=== PATIENT | male | born 1940 | race Two or more races ===

== ENCOUNTER 2017-04-21 13:06 | Inpatient (IN) | payer MEDICARE, OTHER ==
[~2017-04-21] VITALS: Ht 170.2 cm; Wt 63.5 kg
[2017-04-21 13:23] VITALS: BP 151/89
[2017-04-21 13:54] LABS: BASOPHILS % (AUTO) 0.5 % (0.0-2.0); EOSINOPHILS % (AUTO) 1.1 % (0.0-3.0); LYMPHOCYTES % (AUTO) 15.6 % (20.0-45.0); MEAN CORPUSCULAR HGB CONC 31.6 G/DL (32.0-36.0); MEAN CORPUSCULAR VOLUME 98 FL (80-99); MEAN PLATELET VOLUME 7.6 FL (6.5-10.1); MONOCYTES % (AUTO) 15.1 % (1.0-10.0); NEUTROPHILS % (AUTO) 67.6 % (45.0-75.0); PLATELET COUNT 176 K/UL (150-450); RED CELL DISTRIBUTION WIDTH 14.6 % (11.6-14.8); WHITE BLOOD COUNT 4.7 K/UL (4.8-10.8)
[2017-04-21 14:08] LABS: INR 1.1 (0.9-1.1); PROTHROMBIN TIME 11.2 SEC (9.30-11.50)
[2017-04-21 14:12] LABS: ALANINE AMINOTRANSFERASE 23 U/L (3-41); ALBUMIN/GLOBULIN RATIO 1.4 (1.0-2.7); ANION GAP 15 (5-15); ASPARTATE AMINO TRANSFERASE 32 U/L (5-40); CALCIUM 9.2 mg/dL (8.6-10.2); CARBON DIOXIDE 20 mEQ/L (20-30); CHLORIDE 103 mEQ/L (98-107); CHOLESTEROL 116 mg/dL (< 200); CHOLESTEROL/HDL RATIO 3.7 (3.3-4.4); HEMOLYSIS 1; LDL CHOLESTEROL (CALC.) 62 mg/dL (60-99); POTASSIUM 4.1 mEQ/L (3.4-4.9); SODIUM 138 mEQ/L (135-145); TOTAL PROTEIN 6.6 g/dL (6.6-8.7); TROPONIN I < 0.30 ng/mL (<=0.30)
--- NOTE | 2017-04-21 14:13 | Emergency Room Report ---
History of Present Illness General Chief Complaint: General Complaint Source: Patient Present Illness HPI Patient states he feels like he has an infection in his neck and face. He states that the sensation that he is having it in his neck and throat and all over the right side of his face and scalp. He states he has difficulty swallowing and has been unable to eat because he doesn't feel like he can get food down. He denies fever or chills. Denies nausea or vomiting. He denies chest pain or shortness of breath. He has no other complaints. Allergies: Coded Allergies: No Known Allergies (Unverified , 04/21/17) Patient History Past Medical History: see triage record, HTN, other - prostate ca Social History: Denies: alcohol use, drug use, smoking Reviewed Nursing Documentation: PMH: Agreed, PSxH: Agreed Nursing Documentation-PMH Past Medical History: No History, Except For Hx Hypertension: Yes Hx Asthma: No Hx Diabetes: No Hx Cancer: Yes - Prostate Review of Systems All Other Systems: negative except mentioned in HPI Physical Exam Vital Signs Date Time Temp Pulse Resp B/P Pulse Ox O2 Delivery O2 Flow Rate FiO2 04/21/17 13:11 97.7 69 14 151/89 100 Room Air Sp02 EP Interpretation: reviewed, normal General Appearance: no apparent distress, alert, GCS 15, non-toxic Head: normocephalic, atraumatic Eyes: bilateral eye PERRL, bilateral eye normal inspection ENT: hearing grossly normal, normal pharynx, no angioedema, normal voice Neck: full range of motion, supple/symm/no masses Respiratory: chest non-tender, lungs clear, normal breath sounds, speaking full sentences Cardiovascular #1: regular rate, rhythm, no edema Gastrointestinal: normal bowel sounds, non tender, soft, non-distended, no guarding, no rebound Rectal: deferred Musculoskeletal: back normal, gait/station normal, normal range of motion, non- tender Neurologic: alert, oriented x3, responsive, motor strength/tone normal, sensory intact, speech normal Psychiatric: judgement/insight normal, memory normal, mood/affect normal, no suicidal/homicidal ideation Skin: normal color, no rash, warm/dry, well hydrated Lymphatic: no adenopathy Medical Decision Making Diagnostic Impression: Primary Impression: Dysphagia ER Course This patient presents with dysphagia. He is difficult to fully determine what this patient is complaining of. However, given the head symptoms of the symptoms, I felt I should obtain a CT of the head which was unremarkable, so MRI of his brain was ordered and pending at the time of this dictation. I will go ahead and admit this patient for possible further evaluation by neurology and gastroenterology. The patient does have a lab findings consistent with dehydration. He was given IV fluids here in the emergency department. If there are any significant results are findings on the MRI of the brain, an addendum will be added by Dr. Causey. Labs Test 04/21/17 13:40 White Blood Count 4.7 K/UL (4.8-10.8) Red Blood Count 3.40 M/UL (4.70-6.10) Hemoglobin 10.6 G/DL (14.2-18.0) Hematocrit 33.4 % (42.0-52.0) Mean Corpuscular Volume 98 FL (80-99) Mean Corpuscular Hemoglobin 31.0 PG (27.0-31.0) Mean Corpuscular Hemoglobin Concent 31.6 G/DL (32.0-36.0) Red Cell Distribution Width 14.6 % (11.6-14.8) Platelet Count 176 K/UL (150-450) Mean Platelet Volume 7.6 FL (6.5-10.1) Neutrophils (%) (Auto) 67.6 % (45.0-75.0) Lymphocytes (%) (Auto) 15.6 % (20.0-45.0) Monocytes (%) (Auto) 15.1 % (1.0-10.0) Eosinophils (%) (Auto) 1.1 % (0.0-3.0) Basophils (%) (Auto) 0.5 % (0.0-2.0) Prothrombin Time 11.2 SEC (9.30-11.50) Prothromb Time International Ratio 1.1 (0.9-1.1) Activated Partial Thromboplast Time 25 SEC (23-33) Sodium Level 138 mEQ/L (135-145) Potassium Level 4.1 mEQ/L (3.4-4.9) Chloride Level 103 mEQ/L (98-107) Carbon Dioxide Level 20 mEQ/L (20-30) Anion Gap 15 (5-15) Blood Urea Nitrogen 40 mg/dL (7-23) Creatinine 2.0 mg/dL (0.7-1.2) Estimat Glomerular Filtration Rate mL/min (>60) Glucose Level 102 mg/dL (74-106) Calcium Level 9.2 mg/dL (8.6-10.2) Total Bilirubin 0.6 mg/dL (0.0-1.2) Aspartate Amino Transf (AST/SGOT) 32 U/L (5-40) Alanine Aminotransferase (ALT/SGPT) 23 U/L (3-41) Alkaline Phosphatase 45 U/L (40-129) Troponin I < 0.30 ng/mL (<=0.30) Total Protein 6.6 g/dL (6.6-8.7) Albumin 3.9 g/dL (3.5-5.2) Globulin 2.7 g/dL Albumin/Globulin Ratio 1.4 (1.0-2.7) Triglycerides Level 115 mg/dL (< 150) Cholesterol Level 116 mg/dL (< 200) LDL Cholesterol 62 mg/dL (60-99) HDL Cholesterol 31 mg/dL (> 60) Cholesterol/HDL Ratio 3.7 (3.3-4.4) EKG Diagnostic Results Rate: normal ST Segments: no acute changes Rhythm Strip Diag. Results EP Interpretation: yes Rate: 60's Rhythm: NSR, no PVC's, no ectopy CT/MRI/US Diagnostic Results CT/MRI/US Diagnostic Results : Imaging Test Ordered: CT head Impression No acute findings. Specifically no intracranial bleed, mass effect or edema. See official report. Last Vital Signs Date Time Temp Pulse Resp B/P Pulse Ox O2 Delivery O2 Flow Rate FiO2 04/21/17 13:23 14 151/89 100 Room Air 04/21/17 13:11 97.7 69 Disposition: ADMITTED INPATIENT Condition: Serious Referrals: NOT CHOSEN IPA/,REFERRING (PCP) KAYLIE CABRERA D.O. Apr 21, 2017 14:13
[2017-04-21 15:19] VITALS: BP 158/90
[2017-04-21] MEDS ORDERED: BENAZEPRIL HCL40 MG ORAL (15:20)
[2017-04-21] MEDS ORDERED: MYRBETRIQ25 MG PO (15:20)
[2017-04-21] MEDS ORDERED: VITAMIN D22000 UNIT PO (15:20)
[2017-04-21] MEDS ORDERED: FENOFIBRATE134 M1 ORAL (15:22)
[2017-04-21] MEDS ORDERED: ALLOPURINOL300 M1 ORAL (15:22)
[2017-04-21] MEDS ORDERED: PRAVACHOL40 MG ORAL (15:22)
[2017-04-21] MEDS ORDERED: DOCUSATE SODIU100 MG ORAL (15:22)
--- NOTE | 2017-04-21 16:43 | Diagnostic Imaging Report ---
Indication: 76-year-old male emergency room patient with right-sided facial weakness Technique: sagittal T1 fast spin echo, axial T1 FLAIR, axial T2 FLAIR, axial T2 FS PROPELLER, axial T2* GRE, axial diffusion weighted images. ADC and exponential ADC maps generated Comparison: None Findings: No abnormal areas of restricted diffusion to suggest acute infarction. No acute hemorrhage or edema. No mass effect nor midline shift. There is age-related enlargement of ventricles and extra axial CSF spaces.. The sinuses are unremarkable. There is evidence of prior bilateral cataract surgery. The vascular flow voids are preserved. Impression: Age-related volume loss Negative for acute intracranial bleed, mass effect, or infarct.
--- NOTE | 2017-04-21 16:44 | Diagnostic Imaging Report ---
Indication: Right-sided facial numbness Technique: spiral acquisitions obtained through the brain. Angled axial and coronal 5 x 5 mm slices were reconstructed. No IV contrast utilized. Radiation dose was minimized using automated exposure control Total dose length product 1368 mGycm. CTDIvol(s) 70 mGy Comparison: none FINDINGS: No acute hemorrhage or edema. No mass effect or midline shift. There is age-related enlargement of the ventricles and extra axial CSF spaces. There is periventricular deep white matter ischemic change. Normal flores-white differentiation. Visualized orbits are unremarkable. Visualized sinuses are unremarkable. Intact calvarium. IMPRESSION: Chronic and age-related changes. Negative for acute intracranial bleed or mass effect The CT scanner at [facility] is accredited by the [employer] and the scans are performed using protocols designed to limit radiation exposure to as low as reasonably achievable to attain images of sufficient resolution adequate for diagnostic evaluation
[2017-04-21 17:00] VITALS: BP 144/72
--- NOTE | 2017-04-21 17:03 | Diagnostic Imaging Report ---
Indication: DYSPHAGIA Technique: No IV contrast utilized, reason not stated. Spiral acquisitions obtained through the neck Multiplanar reconstructions were generated. Total dose length product 497 mGycm. CTDIvol(s) 17 mGy. Radiation dose was minimized using automated exposure control Comparison: None Findings: The esophagus is mildly gas-filled but normal in caliber. No definite abnormality of the nasopharynx, oropharynx, hypopharynx, or larynx demonstrated. The trachea is unremarkable. No prevertebral soft tissue swelling. No cervical mass or adenopathy demonstrated. The salivary glands are unremarkable. The bones demonstrate mild degenerative changes of the cervical spine. The included upper lung urias are clear except for some posterior dependent atelectasis on the left. The patient is edentulous. The included sinuses are unremarkable. The included intracranial structures are unremarkable.. No thyroid nodule demonstrated Impression: Essentially unremarkable exam. No findings to explain stated clinical history of dysphasia. No evidence of cervical mass or abscess Incidental findings as noted, including mild degenerative changes of the cervical spine, posteriorly left lung dependent atelectasis The CT scanner at [facility] is accredited by the [employer] and the scans are performed using protocols designed to limit radiation exposure to as low as reasonably achievable to attain images of sufficient resolution adequate for diagnostic evaluation.
--- NOTE | 2017-04-21 18:35 | Neurology Progress Note ---
Objective Physical Exam Last Vital Signs Date Time Temp Pulse Resp B/P Pulse Ox O2 Delivery O2 Flow Rate FiO2 04/21/17 17:00 78 18 144/72 100 Room Air 04/21/17 13:11 97.7 Laboratory Tests Test 04/21/17 13:40 White Blood Count 4.7 K/UL (4.8-10.8) L Red Blood Count 3.40 M/UL (4.70-6.10) L Hemoglobin 10.6 G/DL (14.2-18.0) L Hematocrit 33.4 % (42.0-52.0) L Mean Corpuscular Volume 98 FL (80-99) Mean Corpuscular Hemoglobin 31.0 PG (27.0-31.0) Mean Corpuscular Hemoglobin Concent 31.6 G/DL (32.0-36.0) L Red Cell Distribution Width 14.6 % (11.6-14.8) Platelet Count 176 K/UL (150-450) Mean Platelet Volume 7.6 FL (6.5-10.1) Neutrophils (%) (Auto) 67.6 % (45.0-75.0) Lymphocytes (%) (Auto) 15.6 % (20.0-45.0) L Monocytes (%) (Auto) 15.1 % (1.0-10.0) H Eosinophils (%) (Auto) 1.1 % (0.0-3.0) Basophils (%) (Auto) 0.5 % (0.0-2.0) Prothrombin Time 11.2 SEC (9.30-11.50) Prothromb Time International Ratio 1.1 (0.9-1.1) Activated Partial Thromboplast Time 25 SEC (23-33) Sodium Level 138 mEQ/L (135-145) Potassium Level 4.1 mEQ/L (3.4-4.9) Chloride Level 103 mEQ/L (98-107) Carbon Dioxide Level 20 mEQ/L (20-30) Anion Gap 15 (5-15) Blood Urea Nitrogen 40 mg/dL (7-23) H Creatinine 2.0 mg/dL (0.7-1.2) H Estimat Glomerular Filtration Rate mL/min (>60) Glucose Level 102 mg/dL (74-106) Calcium Level 9.2 mg/dL (8.6-10.2) Total Bilirubin 0.6 mg/dL (0.0-1.2) Aspartate Amino Transf (AST/SGOT) 32 U/L (5-40) Alanine Aminotransferase (ALT/SGPT) 23 U/L (3-41) Alkaline Phosphatase 45 U/L (40-129) Troponin I < 0.30 ng/mL (<=0.30) Total Protein 6.6 g/dL (6.6-8.7) Albumin 3.9 g/dL (3.5-5.2) Globulin 2.7 g/dL Albumin/Globulin Ratio 1.4 (1.0-2.7) Triglycerides Level 115 mg/dL (< 150) Cholesterol Level 116 mg/dL (< 200) LDL Cholesterol 62 mg/dL (60-99) HDL Cholesterol 31 mg/dL (> 60) Cholesterol/HDL Ratio 3.7 (3.3-4.4) Impression/Recommendations Problems: (1) new onset of severe R facial submandibular pain with dysphagia dysphonia, low grade fever. (2) r/o oropharyngeal abscess (3) Renal insufficiency (4) HTN (hypertension) Recommendations # [id number] LINDA LOVE Apr 21, 2017 18:35
[2017-04-21] MEDS ORDERED: Morphine Sulfate 2mg/ml Inj IVP ONE (18:45)
[2017-04-21 18:56] VITALS: BP 136/55
[2017-04-21] MEDS: D5NS 1,000 ML IV SCH (23:18)
[2017-04-21] MEDS: Morphine Sulfate 2mg/ml Inj IVP PRN (23:19)
[2017-04-22] VITALS: BP 142/68
--- NOTE | 2017-04-22 00:15 | Consultation ---
DATE OF CONSULTATION: 04/21/2017 NEUROLOGICAL CONSULTATION CONSULTING PHYSICIAN: Blaze Mcneil M.D. REQUESTING PHYSICIAN: Dayanna Hays M.D. HISTORY OF PRESENT ILLNESS: The patient is a 76-year-old man, seen in neurological consultation to evaluate seven days of inability to swallow. The patient informed me that about seven days ago with no obvious reason, he has started to develop severe pain in the anterior aspect of throat and submandibular region with pain increasing when attempting to eat or drink. Pain was not improving. He developed numbness in the right side of the face and right side of the head. Couple of days, he had severe right periorbital headache and right auricular region. Developed blurriness of vision in the right eye. Nighttime, he has some low-grade fevers. He was brought to this hospital complaining of sensation that he is having neck and throat pain as well as pain over the right side of the face and scalp, difficulty swallowing, inability to eat, and feel like he cannot keep his food down. He complains of generalized weakness. The patient was noted to be able to ambulating without assistance, but slightly wobbly. Diagnostic studies following admission included electrolyte panel with elevated BUN of 40 and creatinine 2.0, otherwise normal study with normal troponin, normal coagulation panel, and CBC study with mild anemia. Hemoglobin 10.6 and hematocrit 33.4. His imaging studies included CT scan of the brain revealed chronic age-related changes. There is no evidence of mass or lesions. No intracranial abnormalities. This followed CT of the neck with no contrast. It was essentially unremarkable study. No evidence of cervical mass or abscess. Incidentally was found mild degenerative changes of the cervical spine and posterior left lung dependent atelectasis. MRI of the brain revealed age-related volume loss with evidence of prior bilateral cataract surgery. No acute abnormalities noted. PAST MEDICAL HISTORY: The patient has a history of prostate cancer with a prostatectomy in the year 1999. He has a history of bilateral cataract surgeries and history of hypertension. MEDICATIONS: Treatment now including allopurinol, benazepril, vitamin D, fenofibrate, Myrbetriq, and atorvastatin. ALLERGIES: None reported. SOCIAL HISTORY: Denies alcohol, drug abuse, and nonsmoker. FAMILY HISTORY: Noncontributory. REVIEW OF SYSTEMS: A 14-point of review of symptoms was obtained. This was negative except for those in the HPI. PHYSICAL EXAMINATION: GENERAL: This is a well-developed and well-nourished man, lying in bed with eyes closed, resting. VITAL SIGNS: Now stable. Blood pressure 144/72 and temperature 97.7 degrees. HEENT: Head normocephalic. No deformities. There is a palpable tenderness in the right periorbital region, right facial bones, and right auricular. Significant tenderness on palpation of submandibular areas bilaterally with anterior neck tenderness. There was no meningeal signs noted. Ear examination was negative. There is a slight puffiness of periorbital region on the right, palpable tenderness in the right orbit. SKIN: Unremarkable except for facial diaphoresis and some flushing in the hand and face. MENTAL STATUS: He is fully alert and oriented x3 with no evidence of aphasia or apraxia. He has hypophonic voice. The patient now admits that his voice changed in the last few days. CRANIAL NERVE II: Pupils 3 mm responding to light and accommodation. Extraocular movement intact. Visual urias are full on confrontation. Fundi poorly visualized with cloudiness of cornea on the right. CRANIAL NERVE V: Normal corneal responses. Palpable tenderness in the trigeminal areas of V1 and V2. Pin sensation in the facial area and neck normal. CRANIAL NERVE VII: No facial asymmetry. CRANIAL NERVE VIII: Grossly normal hearing. CRANIAL NERVES IX THROUGH XII: Tongue is in midline. Symmetric palate elevation. The patient felt pain when trying to swallow. No TMJ area pain with no pain increasing with the jaw movement. There is no swelling. No lymphadenopathy noted. MOTOR EXAMINATION: Normal muscle tone. Strength 5/5 in all extremities. No involuntary movement. Deep tendon reflexes 1+ symmetric with downgoing toes on both sides. SENSORY EXAM: Normal to pinprick and light touch. GAIT: Not tested, but reported by personnel able to ambulate to the bathroom and back with minor assistance only. IMPRESSION: 1. The patient is a 76-year-old man with a new onset of a severe neck and right facial pain, dysphagia, dysphonia, and low-grade fevers. Rule out oropharyngeal abscess. 2. Hypertension. 3. Status post transurethral resection of prostate. 4. Renal insufficiency. DISCUSSION: The patient appears to have inflammatory process in the oropharyngeal distribution with referred pain as well as dysphagia and dysphonia. ENT evaluation will be necessary for closer examination. A CT of the neck with contrast will be considered. Meanwhile, the patient to maintain with the IV fluids to avoid dehydration. Continue with the pain management. Thank you for allowing me to see this interesting patient in neurological consultation. Blaze Mcneil M.D. DR: AZIZA JOB#: [id number] CC:
[2017-04-22 04:00] VITALS: BP 116/60
[2017-04-22 07:39] LABS: EOSINOPHILS % (AUTO) 1.8 % (0.0-3.0); LYMPHOCYTES % (AUTO) 12.9 % (20.0-45.0); MEAN CORPUSCULAR HGB CONC 32.8 G/DL (32.0-36.0); MEAN CORPUSCULAR VOLUME 98 FL (80-99); MEAN PLATELET VOLUME 7.9 FL (6.5-10.1); MONOCYTES % (AUTO) 12.1 % (1.0-10.0); NEUTROPHILS % (AUTO) 72.2 % (45.0-75.0); PLATELET COUNT 137 K/UL (150-450); RED BLOOD COUNT 2.96 M/UL (4.70-6.10); RED CELL DISTRIBUTION WIDTH 14.6 % (11.6-14.8); WHITE BLOOD COUNT 4.3 K/UL (4.8-10.8)
[2017-04-22 08:11] LABS: ALANINE AMINOTRANSFERASE 17 U/L (3-41); ALBUMIN/GLOBULIN RATIO 1.3 (1.0-2.7); ANION GAP 12 (5-15); ASPARTATE AMINO TRANSFERASE 24 U/L (5-40); CALCIUM 7.9 mg/dL (8.6-10.2); CARBON DIOXIDE 20 mEQ/L (20-30); CHLORIDE 108 mEQ/L (98-107); CREATININE 1.6 mg/dL (0.7-1.2); CRP QUANT 1.5 mg/dL (< 0.5); HEMOLYSIS 7; POTASSIUM 4.2 mEQ/L (3.4-4.9); SODIUM 140 mEQ/L (135-145); TOTAL PROTEIN 5.4 g/dL (6.6-8.7)
--- NOTE | 2017-04-22 08:21 | History & Physical ---
History and Physical History & Physicial Seen and examined. Dictation completed. Dayanna Hays MD Apr 22, 2017 08:21
--- NOTE | 2017-04-22 08:25 | General Progress Note ---
Assessment/Plan Status: stable Assessment/Plan 1- Sever Dysphagia 2- HLP 3- ARF 4- Dehydration Plan: Will check HIV Unremarkable imaging ENT-Dr Paez, notified Neuro: Dr Storm ID- Dr Galvez Subjective ROS Limited/Unobtainable: No Constitutional: Reports: malaise HEENT: Reports: no symptoms Cardiovascular: Reports: no symptoms Respiratory: Reports: no symptoms Allergies: Coded Allergies: No Known Allergies (Unverified , 04/21/17) Objective Last 24 Hour Vital Signs Date Time Temp Pulse Resp B/P Pulse Ox O2 Delivery O2 Flow Rate FiO2 04/22/17 04:00 98.8 60 18 116/60 99 Room Air 04/22/17 00:00 98.3 64 18 142/68 100 Room Air 04/21/17 19:33 97.7 04/21/17 19:08 97.7 62 18 136/55 100 Room Air 04/21/17 18:56 62 18 136/55 100 Room Air 04/21/17 17:00 78 18 144/72 100 Room Air 04/21/17 15:19 75 18 158/90 100 Room Air 04/21/17 13:23 14 151/89 100 Room Air 04/21/17 13:11 97.7 69 14 151/89 100 Room Air Intake and Output 04/21/17 04/22/17 19:00 07:00 Intake Total 1000 ml 300 ml Output Total 400 ml Balance 1000 ml -100 ml Intake Oral 0 ml IV Total 1000 ml 300 ml Output Urine Total 400 ml # Voids 2 Laboratory Tests 04/21/17 13:40: White Blood Count 4.7L, Red Blood Count 3.40L, Hemoglobin 10.6L, Hematocrit 33.4L, Mean Corpuscular Volume 98, Mean Corpuscular Hemoglobin 31.0, Mean Corpuscular Hemoglobin Concent 31.6L, Red Cell Distribution Width 14.6, Platelet Count 176, Mean Platelet Volume 7.6, Neutrophils (%) (Auto) 67.6, Lymphocytes (%) (Auto) 15.6L, Monocytes (%) (Auto) 15.1H, Eosinophils (%) (Auto ) 1.1, Basophils (%) (Auto) 0.5, Prothrombin Time 11.2, Prothromb Time International Ratio 1.1, Activated Partial Thromboplast Time 25, Sodium Level 138, Potassium Level 4.1, Chloride Level 103, Carbon Dioxide Level 20, Anion Gap 15, Blood Urea Nitrogen 40H, Creatinine 2.0H, Estimat Glomerular Filtration Rate , Glucose Level 102, Calcium Level 9.2, Total Bilirubin 0.6, Aspartate Amino Transf (AST/SGOT) 32, Alanine Aminotransferase (ALT/SGPT) 23, Alkaline Phosphatase 45, Troponin I < 0.30, Total Protein 6.6, Albumin 3.9, Globulin 2.7 , Albumin/Globulin Ratio 1.4, Triglycerides Level 115, Cholesterol Level 116, LDL Cholesterol 62, HDL Cholesterol 31, Cholesterol/HDL Ratio 3.7 04/22/17 06:05: White Blood Count 4.3L, Red Blood Count 2.96L, Hemoglobin 9.5L, Hematocrit 28.9L , Mean Corpuscular Volume 98, Mean Corpuscular Hemoglobin 32.0H, Mean Corpuscular Hemoglobin Concent 32.8, Red Cell Distribution Width 14.6, Platelet Count 137L, Mean Platelet Volume 7.9, Neutrophils (%) (Auto) 72.2, Lymphocytes ( %) (Auto) 12.9L, Monocytes (%) (Auto) 12.1H, Eosinophils (%) (Auto) 1.8, Basophils (%) (Auto) 1.0, Sodium Level 140, Potassium Level 4.2, Chloride Level 108H, Carbon Dioxide Level 20, Anion Gap 12, Blood Urea Nitrogen 27H, Creatinine 1.6H, Estimat Glomerular Filtration Rate , Glucose Level 122H, Calcium Level 7.9L, Total Bilirubin 0.4, Aspartate Amino Transf (AST/SGOT) 24, Alanine Aminotransferase (ALT/SGPT) 17, Alkaline Phosphatase 38L, Total Protein 5.4L, Albumin 3.1L, Globulin 2.3, Albumin/Globulin Ratio 1.3, Erythrocyte Sedimentation Rate [Pending], Hemoglobin A1c [Pending], C-Reactive Protein, Quantitative 1.5H, Thyroid Stimulating Hormone (TSH) 1.300 Height (Feet): 5 Height (Inches): 7.00 Weight (Pounds): 140 General Appearance: no apparent distress EENT: PERRL/EOMI Neck: supple Cardiovascular: normal rate Respiratory/Chest: lungs clear Abdomen: soft Extremities: non-tender Neurologic: chiropractic assistant II-XII grossly normal Dayanna Hays MD Apr 22, 2017 08:25
[2017-04-22 08:34] VITALS: BP 126/60
[2017-04-22 09:00] LABS: HEMOGLOBIN A1C 4.7 % (< 6.0)
[2017-04-22] MEDS: Docusate 100mg cap ORAL SCH ×2 (09:00→18:00)
[2017-04-22] MEDS: Pantoprazole Inj IVP SCH ×2 (09:00→12:34)
[2017-04-22] MEDS: Enoxaparin 30mg Inj SUBQ SCH (09:00)
--- NOTE | 2017-04-22 09:30 | History and Physical Report ---
DATE OF ADMISSION: 04/21/2017 SOURCE OF INFORMATION: The patient and EMR. HISTORY OF PRESENT ILLNESS: The patient is a pleasant 76-year-old male. He denies having any remarkable past medical history. He is complaining of dysphagia to solids starting about a week prior to admission. His dysphagia presently became increasingly worse with pain radiating to the right-sided of the neck. The patient reported that had not been able to eat for the last 7 days, has not been able to drink that much fluid either. The patient denies chest pain or shortness of breath. The patient denies any unintentional weight loss. The patient denies any swelling on the extremities, any headache, or blurry vision. REVIEW OF SYSTEMS: All 12 elements of review of systems reviewed with the patient. Pertinent positives and negatives reviewed as above. PAST MEDICAL HISTORY: Hyperlipidemia, gout, and hypertension. PAST SURGICAL HISTORY: The patient denies. ALLERGIES: No known drug allergies. SOCIAL HISTORY: The patient denies history of tobacco abuse or illicit drug abuse. The patient is and lives single and has no children. The patient denies history of tobacco abuse as well. PHYSICAL EXAMINATION: VITAL SIGNS: Blood pressure of 151/80, temperature 97.7 degrees, and pulse oximetry 100% on room air. HEAD AND NECK: Atraumatic and normocephalic. CHEST: Clear to auscultation. HEART: S1 and S2. Regular rate and rhythm. ABDOMEN: Soft. No organomegaly. MUSCULOSKELETAL: No gross focal motor deficit. NEUROLOGIC: The patient is awake, alert and oriented x3. No gross cranial nerve or motor deficit is noted. There is no particular lymph node is detected on the physical examination in the head and neck area. LABORATORY AND DIAGNOSTIC DATA: Labs dated 04/21/2017 shows WBC 4.7, hemoglobin 10.6, and platelets 177,000. Sodium 138, potassium 4.1, BUN 40, and creatinine of 2. ALT and AST are normal. Coags shows INR of 1.1. Imaging dated 04/21/2017 including brain MRI and CT scan of the head and neck, they are all unremarkable. ASSESSMENT AND PLAN: 1. Subacute dysphagia. 2. Dehydration. 3. Acute renal failure. 4. Gastrointestinal and deep vein thrombosis prophylaxes. PLAN OF CARE: Unremarkable imaging. We will start to initiate and continue with the IV hydration. Keep the patient NPO until further evaluation by the ST evaluation. No antibiotic at this time. Unremarkable imaging. Infectious Disease, Dr. Galvez, Neurology, Dr. Mcneil, and employment appeals examiner, Dr. Evagnelista have already been notified and consulted. Ears, Nose, and Throat physician, Dr. Paez has been notified. We will continue with supportive treatment for now. Pending consultations in put. We will continue with the current management. Dayanna Hays M.D. DR: DINO JOB#: [id number] CC:
[2017-04-22] MEDS: D5NS 1,000 ML IV SCH ×2 (09:33→18:49)
[2017-04-22 09:43] LABS: ERYTHROCYTE SEDIMENTATION RATE 25 MM/HR (0-20)
[2017-04-22] MEDS: Morphine Sulfate 2mg/ml Inj IVP PRN (09:49)
[2017-04-22 12:00] VITALS: BP 114/58
[2017-04-22 16:29] VITALS: BP 124/61
[2017-04-22] MEDS ORDERED: D5NS 1000ml IV ONE (18:06)
[2017-04-22 20:00] VITALS: BP 126/61
--- NOTE | 2017-04-22 22:01 | Consultation ---
Consult Note Consult Note ID dic # [id number] LIEN FERNÁNDEZ M.D. Apr 22, 2017 22:01
[2017-04-23] VITALS: BP 117/57
--- NOTE | 2017-04-23 00:45 | Consultation ---
DATE OF CONSULTATION: INFECTIOUS DISEASE CONSULTATION CONSULTING PHYSICIAN: Last Galvez M.D. REQUESTING PHYSICIAN: Dayanna Hays M.D. REASON FOR CONSULTATION: Evaluation of the patient for dysphasia, pharyngeal abscess, and antibiotic management. HISTORY OF PRESENT ILLNESS: The patient is a 76-year-old male, who was admitted to this medical center with a chief complaint of pain and dysphasia on the left side of the face including right neck. There was a concern that possibly the patient has underlying history of pharyngeal abscess that may contribute to the patient's symptoms. Infectious Disease consultation has been requested for further evaluation of the patient and antibiotic management. PAST MEDICAL HISTORY: 1. Hyperlipidemia. 2. Gout. 3. Hypertension. MEDICATIONS: Currently off of antibiotics. ALLERGIES: No known drug allergies. SOCIAL HISTORY: Negative for alcohol, drug abuse, or smoking. FAMILY HISTORY: Noncontributory. REVIEW OF SYSTEMS: HEENT: As mentioned above. Cardiovascular: No chest pain or palpitations. Gastrointestinal/Abdomen: No nausea or vomiting. Genitourinary: No dysuria. PHYSICAL EXAMINATION: VITAL SIGNS: Temperature 98.2 degrees, pulse 86, and respiratory rate 18. HEENT: Mouth: The patient did not have any abscess or ulceration. NECK: The patient has mild tenderness on the submandibular area bilaterally, however, there was no significant lymphadenopathy or absolute mass. CHEST: Bilateral air entry. No wheezes no crackles. HEART: S1 and S2. ABDOMEN: Soft and nontender. EXTREMITIES: No cyanosis at this time. NEUROLOGIC: Awake and alert. LABORATORY DATA: White blood cells 4.3, hemoglobin 9.5, and platelets 137,000. BUN 27, creatinine 1.6. ALT, AST, alkaline phosphatase is unremarkable. Neck CT with no contrast unremarkable. MRI of the brain, no acute intracranial process. ASSESSMENT: The patient is a 76-year-old male with multiple medical problems as listed below, who has: 1. Right-sided facial pain. 2. Right neck pain. 3. Difficulty of swallowing. 4. No evidence of infectious process by exam or physical history. PLAN: 1. We will monitor the patient off of antibiotics. 2. Monitor CBC. 3. Monitor BMP. 4. We will follow Neurology recommendations. 5. Swallow has been ordered. We will follow results. 6. Based on the patient's clinical course and labs, we will do further recommendations. Thank you, Dr. Hays, for allowing me to participate in the care of this patient. I will follow the patient with you during this hospitalization. Last Galvez M.D. DR: Joyti JOB#: [id number] CC:
[2017-04-23] MEDS: D5NS 1,000 ML IV SCH ×2 (02:34→12:12)
[2017-04-23 04:00] VITALS: BP 104/59
[2017-04-23 07:33] LABS: BASOPHILS % (AUTO) 0.5 % (0.0-2.0); EOSINOPHILS % (AUTO) 1.9 % (0.0-3.0); LYMPHOCYTES % (AUTO) 15.8 % (20.0-45.0); MEAN CORPUSCULAR HEMOGLOBIN 31.1 PG (27.0-31.0); MEAN CORPUSCULAR HGB CONC 31.6 G/DL (32.0-36.0); MEAN CORPUSCULAR VOLUME 98 FL (80-99); MEAN PLATELET VOLUME 8.9 FL (6.5-10.1); MONOCYTES % (AUTO) 10.7 % (1.0-10.0); NEUTROPHILS % (AUTO) 71.1 % (45.0-75.0); PLATELET COUNT 121 K/UL (150-450); RED BLOOD COUNT 2.92 M/UL (4.70-6.10); RED CELL DISTRIBUTION WIDTH 14.1 % (11.6-14.8); WHITE BLOOD COUNT 4.3 K/UL (4.8-10.8)
[2017-04-23 08:00] VITALS: BP 127/72
[2017-04-23 08:08] LABS: ALANINE AMINOTRANSFERASE 13 U/L (3-41); ALBUMIN/GLOBULIN RATIO 1.1 (1.0-2.7); ANION GAP 14 (5-15); ASPARTATE AMINO TRANSFERASE 16 U/L (5-40); CALCIUM 7.6 mg/dL (8.6-10.2); CARBON DIOXIDE 19 mEQ/L (20-30); CHLORIDE 110 mEQ/L (98-107); CREATININE 1.5 mg/dL (0.7-1.2); HEMOLYSIS 1; POTASSIUM 3.8 mEQ/L (3.4-4.9); SODIUM 143 mEQ/L (135-145); TOTAL PROTEIN 5.2 g/dL (6.6-8.7)
[2017-04-23] MEDS: Docusate 100mg cap ORAL SCH ×2 (09:00→17:30)
[2017-04-23] MEDS: Pantoprazole Inj IVP SCH (09:00)
[2017-04-23] MEDS: Enoxaparin 30mg Inj SUBQ SCH (09:00)
--- NOTE | 2017-04-23 10:39 | Infectious Diseases Prog Note ---
Assessment/Plan Assessment/Plan ASSESSMENT: 76 y/o male with: // Subacute dysphagia - no evidence of acute infectious or central neurological process // Afebrile without leukocytosis // ARF - improving // HTN // NKDA // Full Code PLAN: - monitor pt off of ABX - f/u cultures - monitor CBC, temperatures - monitor BMP - aspiration precautions Subjective Allergies: Coded Allergies: No Known Allergies (Unverified , 04/21/17) Subjective remains afebrile Objective Vital Signs Last 24 Hour Vital Signs Date Time Temp Pulse Resp B/P Pulse Ox O2 Delivery O2 Flow Rate FiO2 04/23/17 08:00 98.2 61 17 127/72 99 Room Air 04/23/17 04:00 98.2 67 18 104/59 98 Room Air 04/23/17 00:00 99.1 75 18 117/57 97 Room Air 04/22/17 20:00 99.0 97 18 126/61 98 Room Air 04/22/17 16:29 98.2 62 18 124/61 100 Room Air 04/22/17 12:00 98.4 60 18 114/58 100 Room Air Height (Feet): 5 Height (Inches): 7.00 Weight (Pounds): 140 General Appearance: no acute distress Respiratory/Chest: no respiratory distress Cardiovascular: normal rate, regular rhythm Abdomen: normal bowel sounds, soft, non tender, non distended Laboratory Tests Test 04/23/17 05:50 White Blood Count 4.3 K/UL (4.8-10.8) L Red Blood Count 2.92 M/UL (4.70-6.10) L Hemoglobin 9.1 G/DL (14.2-18.0) L Hematocrit 28.7 % (42.0-52.0) L Mean Corpuscular Volume 98 FL (80-99) Mean Corpuscular Hemoglobin 31.1 PG (27.0-31.0) H Mean Corpuscular Hemoglobin Concent 31.6 G/DL (32.0-36.0) L Red Cell Distribution Width 14.1 % (11.6-14.8) Platelet Count 121 K/UL (150-450) L Mean Platelet Volume 8.9 FL (6.5-10.1) Neutrophils (%) (Auto) 71.1 % (45.0-75.0) Lymphocytes (%) (Auto) 15.8 % (20.0-45.0) L Monocytes (%) (Auto) 10.7 % (1.0-10.0) H Eosinophils (%) (Auto) 1.9 % (0.0-3.0) Basophils (%) (Auto) 0.5 % (0.0-2.0) Sodium Level 143 mEQ/L (135-145) Potassium Level 3.8 mEQ/L (3.4-4.9) Chloride Level 110 mEQ/L (98-107) H Carbon Dioxide Level 19 mEQ/L (20-30) L Anion Gap 14 (5-15) Blood Urea Nitrogen 18 mg/dL (7-23) Creatinine 1.5 mg/dL (0.7-1.2) H Estimat Glomerular Filtration Rate mL/min (>60) Glucose Level 127 mg/dL (74-106) H Calcium Level 7.6 mg/dL (8.6-10.2) L Total Bilirubin 0.5 mg/dL (0.0-1.2) Aspartate Amino Transf (AST/SGOT) 16 U/L (5-40) Alanine Aminotransferase (ALT/SGPT) 13 U/L (3-41) Alkaline Phosphatase 42 U/L (40-129) Total Protein 5.2 g/dL (6.6-8.7) L Albumin 2.8 g/dL (3.5-5.2) L Globulin 2.4 g/dL Albumin/Globulin Ratio 1.1 (1.0-2.7) Current Medications Medications (Trade) Dose Ordered Sig/Jacy Route PRN Reason Start Time Stop Time Status Last Admin Dose Admin Allopurinol (Allopurinol) 300 mg DAILY ORAL 04/22/17 09:00 05/22/17 08:59 Benazepril HCl (Lotensin) 40 mg DAILY ORAL 04/22/17 09:00 05/22/17 08:59 Dextrose/Sodium Chloride (D5ns) 1,000 ml @ 100 mls/hr Q10H IV 04/21/17 23:00 04/24/17 22:59 04/23/17 02:34 Docusate Sodium (Colace) 100 mg TWICE A DAY ORAL 04/22/17 09:00 05/22/17 08:59 Enoxaparin Sodium (Lovenox) 30 mg DAILY SUBQ 04/22/17 09:00 05/22/17 08:59 Fenofibrate (Tricor) 134 mg DAILY ORAL 04/22/17 09:00 05/22/17 08:59 Morphine Sulfate (Morphine Sulfate) 2 mg Q6H PRN IVP For Pain 04/21/17 22:15 04/28/17 22:14 04/22/17 09:49 Ondansetron HCl (Zofran) 4 mg Q6H PRN IVP Nausea & Vomiting 04/21/17 22:15 05/21/17 22:14 Pantoprazole (Protonix) 40 mg DAILY IVP 04/22/17 09:00 05/22/17 08:59 04/22/17 12:34 Patient Own Medication (Patient's Own Med) 1 ea DAILY ORAL 04/22/17 09:00 05/22/17 08:59 Pravastatin Sodium (Pravachol) 10 mg BEDTIME ORAL 04/22/17 21:00 05/22/17 20:59 RIKY FARAH Apr 23, 2017 10:39
[2017-04-23 12:00] VITALS: BP 137/64
[2017-04-23] MEDS: Morphine Sulfate 2mg/ml Inj IVP PRN (14:09)
--- NOTE | 2017-04-23 14:17 | Internal Med Progress Note ---
Subjective Date of Service: Apr 23, 2017 Physician Name Hamilton,Alirio Attending Physician Dayanna Hays MD Current Medications Medications (Trade) Dose Ordered Sig/Jcay Route PRN Reason Start Time Stop Time Status Last Admin Dose Admin Allopurinol (Allopurinol) 300 mg DAILY ORAL 04/22/17 09:00 05/22/17 08:59 Benazepril HCl (Lotensin) 40 mg DAILY ORAL 04/22/17 09:00 05/22/17 08:59 Dextrose/Sodium Chloride (D5ns) 1,000 ml @ 100 mls/hr Q10H IV 04/21/17 23:00 04/24/17 22:59 04/23/17 12:12 Docusate Sodium (Colace) 100 mg TWICE A DAY ORAL 04/22/17 09:00 05/22/17 08:59 Enoxaparin Sodium (Lovenox) 30 mg DAILY SUBQ 04/22/17 09:00 05/22/17 08:59 Fenofibrate (Tricor) 134 mg DAILY ORAL 04/22/17 09:00 05/22/17 08:59 Morphine Sulfate (Morphine Sulfate) 2 mg Q6H PRN IVP For Pain 04/21/17 22:15 04/28/17 22:14 04/23/17 14:09 Ondansetron HCl (Zofran) 4 mg Q6H PRN IVP Nausea & Vomiting 04/21/17 22:15 05/21/17 22:14 Pantoprazole (Protonix) 40 mg DAILY IVP 04/22/17 09:00 05/22/17 08:59 04/22/17 12:34 Patient Own Medication (Patient's Own Med) 1 ea DAILY ORAL 04/22/17 09:00 05/22/17 08:59 Pravastatin Sodium (Pravachol) 10 mg BEDTIME ORAL 04/22/17 21:00 05/22/17 20:59 Allergies: Coded Allergies: No Known Allergies (Unverified , 04/21/17) ROS Limited/Unobtainable: No Constitutional: Reports: no symptoms HEENT: Reports: other - right facial pain Cardiovascular: Reports: no symptoms Respiratory: Reports: no symptoms Gastrointestinal/Abdominal: Reports: no symptoms Genitourinary: Reports: no symptoms Neurologic/Psychiatric: Reports: no symptoms Subjective 76 YO M admitted with right facial pain, dysphagia and dysphonia. Cover for Int Med-Dr Hays. Await ENT eval. 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8 % (20.0-45.0) L Monocytes (%) (Auto) 10.7 % (1.0-10.0) H Eosinophils (%) (Auto) 1.9 % (0.0-3.0) Basophils (%) (Auto) 0.5 % (0.0-2.0) Sodium Level 143 mEQ/L (135-145) Potassium Level 3.8 mEQ/L (3.4-4.9) Chloride Level 110 mEQ/L (98-107) H Carbon Dioxide Level 19 mEQ/L (20-30) L Anion Gap 14 (5-15) Blood Urea Nitrogen 18 mg/dL (7-23) Creatinine 1.5 mg/dL (0.7-1.2) H Estimat Glomerular Filtration Rate mL/min (>60) Glucose Level 127 mg/dL (74-106) H Calcium Level 7.6 mg/dL (8.6-10.2) L Total Bilirubin 0.5 mg/dL (0.0-1.2) Aspartate Amino Transf (AST/SGOT) 16 U/L (5-40) Alanine Aminotransferase (ALT/SGPT) 13 U/L (3-41) Alkaline Phosphatase 42 U/L (40-129) Total Protein 5.2 g/dL (6.6-8.7) L Albumin 2.8 g/dL (3.5-5.2) L Globulin 2.4 g/dL Albumin/Globulin Ratio 1.1 (1.0-2.7) Intake and Output 04/22/17 04/23/17 19:00 07:00 Intake Total 1100 ml 1100 ml Output Total 500 ml Balance 1100 ml 600 ml IV Total 1100 ml 1100 ml Output Urine Total 500 ml Assessment/Plan Problem List: (1) Dysphonia (2) new onset of severe R facial submandibular pain with dysphagia dysphonia, low grade fever. Assessment & Plan: See neurology note. Await ENT consult. (3) Dehydration (4) Dysphagia (5) Renal insufficiency (6) HTN (hypertension) Assessment & Plan: Continue benazepril. (7) Hypercholesteremia Assessment & Plan: Cont pravachol and tricor Status: progressing ALIRIO HAMILTON Apr 23, 2017 14:17
[2017-04-23 16:00] VITALS: BP 127/68
[2017-04-23 20:00] VITALS: BP 134/70
[2017-04-23] MEDS ORDERED: D5NS 1000ml IV ONE (22:41)
[2017-04-24] VITALS: BP 116/57
[2017-04-24] MEDS: D5NS 1,000 ML IV SCH ×3 (00:01→20:24)
[2017-04-24 04:00] VITALS: BP 120/96
[2017-04-24 06:16] LABS: BASOPHILS % (AUTO) 0.7 % (0.0-2.0); EOSINOPHILS % (AUTO) 3.2 % (0.0-3.0); MEAN CORPUSCULAR HEMOGLOBIN 32.1 PG (27.0-31.0); MEAN CORPUSCULAR VOLUME 97 FL (80-99); MEAN PLATELET VOLUME 8.3 FL (6.5-10.1); MONOCYTES % (AUTO) 9.7 % (1.0-10.0); NEUTROPHILS % (AUTO) 71.4 % (45.0-75.0); PLATELET COUNT 135 K/UL (150-450); RED BLOOD COUNT 2.58 M/UL (4.70-6.10); RED CELL DISTRIBUTION WIDTH 14.4 % (11.6-14.8); WHITE BLOOD COUNT 4.1 K/UL (4.8-10.8)
[2017-04-24 06:36] LABS: ALANINE AMINOTRANSFERASE 11 U/L (3-41); ALBUMIN/GLOBULIN RATIO 1.1 (1.0-2.7); ANION GAP 15 (5-15); ASPARTATE AMINO TRANSFERASE 12 U/L (5-40); CALCIUM 7.5 mg/dL (8.6-10.2); CARBON DIOXIDE 17 mEQ/L (20-30); CHLORIDE 110 mEQ/L (98-107); CREATININE 1.3 mg/dL (0.7-1.2); HEMOLYSIS 1; POTASSIUM 3.9 mEQ/L (3.4-4.9); SODIUM 142 mEQ/L (135-145); TOTAL PROTEIN 4.8 g/dL (6.6-8.7)
[2017-04-24 08:00] VITALS: BP 139/71
--- NOTE | 2017-04-24 08:14 | General Progress Note ---
Assessment/Plan Status: stable Assessment/Plan 1. Subacute dysphagia. 2. Dehydration. 3. Acute renal failure. 4. Gastrointestinal and deep vein thrombosis prophylaxes. Plan: Pending ST and swallow eval ENT-Dr Paez, notified Neuro: Dr Storm ID- Dr Galvez will check iron panel and stool for OB Subjective ROS Limited/Unobtainable: No Constitutional: Reports: malaise, weakness HEENT: Reports: throat pain Cardiovascular: Reports: no symptoms Respiratory: Reports: no symptoms Gastrointestinal/Abdominal: Reports: no symptoms Allergies: Coded Allergies: No Known Allergies (Unverified , 04/21/17) Objective Last 24 Hour Vital Signs Date Time Temp Pulse Resp B/P Pulse Ox O2 Delivery O2 Flow Rate FiO2 04/24/17 04:00 97.9 76 18 120/96 97 Room Air 04/24/17 00:00 98.2 60 18 116/57 98 Room Air 04/23/17 20:00 97.7 60 20 134/70 100 Room Air 04/23/17 16:00 98.0 64 18 127/68 99 Room Air 04/23/17 12:00 97.5 60 18 137/64 100 Room Air Intake and Output 04/23/17 04/24/17 19:00 07:00 Intake Total 1400 ml 900 ml Output Total 850 ml Balance 550 ml 900 ml Intake Oral 200 ml IV Total 1200 ml 900 ml Output Urine Total 850 ml # Voids 4 3 Laboratory Tests 04/24/17 04:55: White Blood Count 4.1L, Red Blood Count 2.58L, Hemoglobin 8.3L, Hematocrit 25.1L , Mean Corpuscular Volume 97, Mean Corpuscular Hemoglobin 32.1H, Mean Corpuscular Hemoglobin Concent 33.0, Red Cell Distribution Width 14.4, Platelet Count 135L, Mean Platelet Volume 8.3, Neutrophils (%) (Auto) 71.4, Lymphocytes ( %) (Auto) 15.0L, Monocytes (%) (Auto) 9.7, Eosinophils (%) (Auto) 3.2H, Basophils (%) (Auto) 0.7, Sodium Level 142, Potassium Level 3.9, Chloride Level 110H, Carbon Dioxide Level 17L, Anion Gap 15, Blood Urea Nitrogen 13, Creatinine 1.3H, Estimat Glomerular Filtration Rate , Glucose Level 120H, Calcium Level 7.5L, Total Bilirubin 0.4, Aspartate Amino Transf (AST/SGOT) 12, Alanine Aminotransferase (ALT/SGPT) 11, Alkaline Phosphatase 41, Total Protein 4.8L, Albumin 2.6L, Globulin 2.2, Albumin/Globulin Ratio 1.1 Height (Feet): 5 Height (Inches): 7.00 Weight (Pounds): 140 General Appearance: no apparent distress EENT: PERRL/EOMI Neck: supple Cardiovascular: normal rate Respiratory/Chest: lungs clear Abdomen: soft Extremities: non-tender 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
[2017-04-24 08:38] LABS: HEMOLYSIS 4; IRON 21 ug/dL (59-158); TOTAL IRON BINDING CAPACITY 203 ug/dL (250-400)
[2017-04-24] MEDS: Enoxaparin 30mg Inj SUBQ SCH (09:00)
[2017-04-24] MEDS: Docusate 100mg cap ORAL SCH ×2 (09:52→17:51)
[2017-04-24] MEDS ORDERED: Artificial Tears 1.4% Op Soln BOTH EYES PRN (10:30)
[2017-04-24] MEDS: Cosopt Opth Soln 10 mL Btl BOTH EYES SCH ×2 (10:54→17:51)
[2017-04-24 12:00] VITALS: BP 139/71
[2017-04-24] MEDS: Morphine Sulfate 2mg/ml Inj IVP PRN ×2 (12:38→20:25)
[2017-04-24] MEDS: Aspirin EC 81mg tab ORAL SCH (15:14)
[2017-04-24 16:00] VITALS: BP 152/74
--- NOTE | 2017-04-24 18:21 | Infectious Diseases Prog Note ---
Assessment/Plan Assessment/Plan ASSESSMENT: 76 y/o male with: // Subacute dysphagia - no evidence of acute infectious or central neurological process // Afebrile without leukocytosis // ARF - improving // HTN // NKDA // Full Code PLAN: - monitor pt off of ABX - if evidence of achalasia or megaesophagus, can consider chagas etiology in - f/u cultures - monitor CBC, temperatures - monitor BMP - aspiration precautions Subjective Allergies: Coded Allergies: No Known Allergies (Unverified , 04/21/17) Subjective remains afebrile ENT eval pending Objective Vital Signs Last 24 Hour Vital Signs Date Time Temp Pulse Resp B/P Pulse Ox O2 Delivery O2 Flow Rate FiO2 04/24/17 16:00 97.5 58 20 152/74 100 Room Air 04/24/17 12:00 98.2 56 20 139/71 100 Room Air 04/24/17 09:52 139/71 04/24/17 08:00 97.7 57 20 139/71 100 Room Air 04/24/17 04:00 97.9 76 18 120/96 97 Room Air 04/24/17 00:00 98.2 60 18 116/57 98 Room Air 04/23/17 20:00 97.7 60 20 134/70 100 Room Air Height (Feet): 5 Height (Inches): 7.00 Weight (Pounds): 140 General Appearance: no acute distress Respiratory/Chest: no respiratory distress Cardiovascular: normal rate, regular rhythm Abdomen: normal bowel sounds, soft, non tender, non distended Laboratory Tests Test 04/24/17 04:55 White Blood Count 4.1 K/UL (4.8-10.8) L Red Blood Count 2.58 M/UL (4.70-6.10) L Hemoglobin 8.3 G/DL (14.2-18.0) L Hematocrit 25.1 % (42.0-52.0) L Mean Corpuscular Volume 97 FL (80-99) Mean Corpuscular Hemoglobin 32.1 PG (27.0-31.0) H Mean Corpuscular Hemoglobin Concent 33.0 G/DL (32.0-36.0) Red Cell Distribution Width 14.4 % (11.6-14.8) Platelet Count 135 K/UL (150-450) L Mean Platelet Volume 8.3 FL (6.5-10.1) Neutrophils (%) (Auto) 71.4 % (45.0-75.0) Lymphocytes (%) (Auto) 15.0 % (20.0-45.0) L Monocytes (%) (Auto) 9.7 % (1.0-10.0) Eosinophils (%) (Auto) 3.2 % (0.0-3.0) H Basophils (%) (Auto) 0.7 % (0.0-2.0) Sodium Level 142 mEQ/L (135-145) Potassium Level 3.9 mEQ/L (3.4-4.9) Chloride Level 110 mEQ/L (98-107) H Carbon Dioxide Level 17 mEQ/L (20-30) L Anion Gap 15 (5-15) Blood Urea Nitrogen 13 mg/dL (7-23) Creatinine 1.3 mg/dL (0.7-1.2) H Estimat Glomerular Filtration Rate mL/min (>60) Glucose Level 120 mg/dL (74-106) H Calcium Level 7.5 mg/dL (8.6-10.2) L Iron Level 21 ug/dL (59-158) L Total Iron Binding Capacity 203 ug/dL (250-400) L Percent Iron Saturation 10 % (15-50) L Unsaturated Iron Binding 182 ug/dL (112-346) Total Bilirubin 0.4 mg/dL (0.0-1.2) Aspartate Amino Transf (AST/SGOT) 12 U/L (5-40) Alanine Aminotransferase (ALT/SGPT) 11 U/L (3-41) Alkaline Phosphatase 41 U/L (40-129) Total Protein 4.8 g/dL (6.6-8.7) L Albumin 2.6 g/dL (3.5-5.2) L Globulin 2.2 g/dL Albumin/Globulin Ratio 1.1 (1.0-2.7) Current Medications Medications (Trade) Dose Ordered Sig/Jacy Route PRN Reason Start Time Stop Time Status Last Admin Dose Admin Allopurinol (Allopurinol) 300 mg DAILY ORAL 04/22/17 09:00 05/22/17 08:59 04/24/17 09:52 Artificial Tears (Akwa-Tears) 2 drop Q4HR PRN BOTH EYES Dry Eyes 04/24/17 10:30 05/24/17 10:29 Aspirin (Ecotrin) 81 mg DAILY ORAL 04/24/17 14:00 05/24/17 13:59 04/24/17 15:14 Benazepril HCl (Lotensin) 40 mg DAILY ORAL 04/22/17 09:00 05/22/17 08:59 04/24/17 09:52 Dextrose/Sodium Chloride (D5ns) 1,000 ml @ 100 mls/hr Q10H IV 04/21/17 23:00 04/24/17 22:59 04/24/17 10:55 Docusate Sodium (Colace) 100 mg TWICE A DAY ORAL 04/22/17 09:00 05/22/17 08:59 04/24/17 17:51 Dorzolamide/ Timolol (Cosopt) 1 drop TWICE A DAY BOTH EYES 04/24/17 11:00 05/24/17 10:59 04/24/17 17:51 Fenofibrate (Tricor) 134 mg DAILY ORAL 04/22/17 09:00 05/22/17 08:59 04/24/17 09:52 Lansoprazole (Prevacid) 30 mg DAILY ORAL 04/23/17 18:00 05/23/17 17:59 04/24/17 09:52 Latanoprost (Xalatan) 1 drop BEDTIME BOTH EYES 04/24/17 21:00 05/24/17 20:59 Morphine Sulfate (Morphine Sulfate) 2 mg Q6H PRN IVP For Pain 04/21/17 22:15 04/28/17 22:14 04/24/17 12:38 Ondansetron HCl (Zofran) 4 mg Q6H PRN IVP Nausea & Vomiting 04/21/17 22:15 05/21/17 22:14 Patient Own Medication (Patient's Own Med) 1 ea DAILY ORAL 04/22/17 09:00 05/22/17 08:59 04/24/17 10:00 Pravastatin Sodium (Pravachol) 10 mg BEDTIME ORAL 04/22/17 21:00 05/22/17 20:59 04/23/17 21:03 RIKY FARAH Apr 24, 2017 18:21
--- NOTE | 2017-04-24 19:06 | Cardiology Report ---
APPROVED REPORT EXAM: Two-dimensional and M-mode echocardiogram with Doppler and color Doppler. INDICATION LV function M-Mode DIMENSIONS IVSd0.8 (0.7-1.1cm)Left Atrium (MM)2.9 (1.6-4.0cm) LVDd4.2 (3.5-5.6cm)Aortic Root3.8 (2.0-3.7cm) PWd1.1 (0.7-1.1cm)Aortic Cusp Exc.2.2 (1.5-2.0cm) IVSs1.5 cm LVDs2.8 (2.5-4.0cm) PWs1.6 cm Normal left ventricular chamber size, systolic function and wall motion. Left ventricular ejection fraction estimated to be 60-65 %. No evidence of left ventricular hypertrophy. Anterior Echo-free space, may be due to pericardial fat or effusion. All other cardiac chamber sizes are within normal limits. Mild focal aortic valve sclerosis with adequate cusp excursion. Mild aortic root dilatation. Mildly thickened mitral valve leaflets with normal excursion. Mitral annulus and aortic root calcification. Pulmonic valve not well visualized. Normal tricuspid valve structure. IVC at normal size with physiologic collapse. A color flow and spectral Doppler study was performed and revealed: Trace aortic regurgitation. Trace to mild mitral regurgitation. Mitral diastolic velocities suggest reduced left ventricular relaxation c/w mild LV diastolic dysfunction (Grade I). Trace to mild tricuspid regurgitation. Tricuspid systolic velocities suggests peak right ventricular systolic pressure of 37 mmHg, consistent with mild pulmonary hypertension.
[2017-04-24 19:15] LABS: BASOPHILS % (AUTO) 0.8 % (0.0-2.0); EOSINOPHILS % (AUTO) 2.6 % (0.0-3.0); LYMPHOCYTES % (AUTO) 15.1 % (20.0-45.0); MEAN CORPUSCULAR HEMOGLOBIN 31.8 PG (27.0-31.0); MEAN CORPUSCULAR HGB CONC 33.2 G/DL (32.0-36.0); MEAN CORPUSCULAR VOLUME 96 FL (80-99); MEAN PLATELET VOLUME 7.1 FL (6.5-10.1); NEUTROPHILS % (AUTO) 73.5 % (45.0-75.0); PLATELET COUNT 118 K/UL (150-450); RED BLOOD COUNT 2.74 M/UL (4.70-6.10); RED CELL DISTRIBUTION WIDTH 14.4 % (11.6-14.8); WHITE BLOOD COUNT 4.9 K/UL (4.8-10.8)
[2017-04-24 20:00] VITALS: BP 145/74
--- NOTE | 2017-04-24 20:21 | Cardiology Report ---
APPROVED REPORT EKG Measurement Heart [id number] Normal sinus rhythm Normal ECG
--- NOTE | 2017-04-24 23:45 | Consultation ---
DATE OF CONSULTATION: 04/24/2017 CARDIOLOGY CONSULTATION CONSULTING PHYSICIAN: Yasmany Evangelista M.D. REFERRING PHYSICIAN: Dayanna Hays M.D. REASON FOR CONSULTATION: Management of accelerated hypertension and abnormal EKG. HISTORY OF PRESENT ILLNESS: The patient is a very unfortunate 76-year-old gentleman, who presents to the hospital with a constellation of symptoms that mainly affecting the right side of his head including headaches, which are now throbbing. He has sensation of dysphagia to the right side of his or swallowing muscles as well as decrease in hearing, acuity in the right ear as well as pain in the right side of the face. He has had no facial asymmetry. On arrival to the emergency department, his blood pressure is 151/89 and he had abnormal ECG revealing this abnormally tall and peaked T waves. The patient was found to have acute kidney injury, was admitted to the telemetry. It is unclear whether the patient has been tolerating POs because of fear of the swallowing. PAST MEDICAL HISTORY: Including history of hypertension and history of prostate cancer. PAST SURGICAL HISTORY: Prostatectomy in 1999 and also bilateral cataract surgery. ALLERGIES: No known drug allergies. MEDICATIONS: List of medications include allopurinol 300 mg p.o. daily, benazepril 40 mg p.o. daily, Colace 100 mg p.o. twice daily, vitamin D2 50,000 units once weekly, fenofibrate 134 mg p.o. daily, Myrbetriq 25 mg p.o. daily, and pravastatin 10 mg p.o. at bedtime. SOCIAL HISTORY: Denies any alcohol, drugs, tobacco, or illicit drug use. FAMILY HISTORY: No premature coronary artery disease in first-degree relatives. REVIEW OF SYSTEMS: HEENT: He has a headache mainly in the right side of the head. No dizziness or lightheadedness. Constitutional: Complains of fevers and generalized pain. Denies any weight loss or weight gain. Cardiovascular: Denies any chest pain, shortness of breath, PND, orthopnea, or leg swelling. Pulmonary: Denies any cough, hemoptysis, or wheezing. Gastrointestinal: Denies any nausea, vomiting, diarrhea, constipation, abdominal pain, or GI bleed. Genitourinary: Denies any hematuria, dysuria, or incontinence. Neurologic: Some decreasing in hearing, acuity in the right ear, but no motor dysfunction or sensory deficits. PHYSICAL EXAMINATION: VITAL SIGNS: At the time of arrival to the hospital, blood pressure is 151/89, heart rate 69, respirations of 14, temperature 97.7 degrees Fahrenheit, and O2 saturation of 100% on room air. GENERAL: The patient is a very unfortunate 76-year-old gentleman, in no apparent respiratory distress. Alert and oriented x4. HEENT: Atraumatic and normocephalic. Anicteric. Pupils are equal, round, and reactive to light and accommodation. Extraocular muscles intact. NECK: JVP is less than 5 cm. No carotid bruits. Carotid upstrokes 2+ bilaterally. CARDIOVASCULAR: Normal S1 and S2. Regular rate and rhythm. No murmurs, gallops, or rubs. PMI is at fourth intercostal space in the midclavicular line. LUNGS: Clear to auscultation bilaterally. ABDOMEN: Soft, nontender, and nondistended. No hepatosplenomegaly. Positive bowel sounds. EXTREMITIES: No evidence of edema, clubbing, or cyanosis. LABORATORY AND DIAGNOSTIC DATA: A 12-lead electrocardiogram, sinus rhythm at a rate of 63 with tall and peaked T waves in the precordial leads suggestive of hyperkalemia. LABORATORY FINDINGS: Sodium of 138, potassium is 4.1, chloride 103, bicarbonate is 20, BUN of 40, creatinine 2.0, glucose is 102, and calcium is 9.2. AST and ALT 32 and 23 respectively. Triglycerides of 115, total cholesterol is 116, LDL is 62, and HDL 31. INR is 1.1. WBC is 4.7, hemoglobin of 10.6, hematocrit 33.4, and platelet count is 176,000. Troponin I was less than 0.3. A 2D echocardiography done on 04/21/2017 showed normal LV systolic function with LVEF of 60% to 65% with grade 1 LV diastolic dysfunction with normal intracardiac filling pressures and right ventricular systolic pressure measured at 37 mmHg concerning with mild pulmonary hypertension. ASSESSMENT AND PLAN: The patient is a very unfortunate 76-year-old gentleman, seen in Cardiology consultation at the request of Dr. Hays. 1. Abnormal ECG including tall and peaked T waves most likely hyperkalemia due to acute kidney injury. The potassium level on the first Chem-7 was within normal limits. The cause of acute renal failure is most likely hypovolemia, is secondary to decrease in p.o. intake as the patient has symptoms with dysphagia and right facial numbness and pain as mentioned above. I would like to decrease the benazepril and add a small dose of diuretic if the tall and peaked T waves are persistent. Looking at the chemistry, the potassium levels are currently within normal limits. 2. Accelerated hypertension. At the time of arrival to the hospital, the patient continued on benazepril. Blood pressure is fluctuating and the latest figure is elevated. I would like to add a small dose of diuretic to this regimen. 3. Dyslipidemia, currently on combination of pravastatin and fenofibrate. We will continue both regimens. 4. Mild pulmonary hypertension per echocardiography. 5. Normal left ventricular systolic function with left ventricular ejection fraction of approximately 55%. I would like to thank, Dr. Hays, for the courtesy of this consultation. Yasmany Evangelista M.D. DR: NAN JOB#: [id number] CC:
[2017-04-25] VITALS: BP 129/67
[2017-04-25 04:00] VITALS: BP 119/67
[2017-04-25 08:24] VITALS: BP 136/71
[2017-04-25] MEDS ORDERED: DIURIL25 MG ORAL (09:07)
[2017-04-25] MEDS ORDERED: ASPIRIN EC81 MG ORAL (09:07)
[2017-04-25 09:29] VITALS: BP 136/71
[2017-04-25] MEDS: Cosopt Opth Soln 10 mL Btl BOTH EYES SCH (09:29)
[2017-04-25] MEDS: Docusate 100mg cap ORAL SCH (09:31)
[2017-04-25] MEDS: Aspirin EC 81mg tab ORAL SCH (09:31)
[2017-04-25] MEDS ORDERED: D5NS 1000ml IV ONE (11:52)
--- NOTE | 2017-04-27 09:12 | Discharge Summary ---
Discharge Summary Hospital Course Date of Admission Apr 21, 2017 at 15:49 Date of Discharge Apr 25, 2017 at 11:53 Admitting Diagnosis CVA/dysphagia/dehydration HPI Tricia Davis is a 76 year old male who was admitted on Apr 21, 2017 at 15:49 for Cerebrovascular Accident, Dusphagia, Dehydration Hospital Course [id number] Discharge Discharge Disposition Patient was discharged to Home with Home Health([id number]) Discharge Diagnoses: Marium Reyes NP Apr 27, 2017 09:12
--- NOTE | 2017-04-27 22:31 | Discharge Summary 2 SIG ---
DATE OF ADMISSION: 04/21/2017 DATE OF DISCHARGE: 04/25/2017 CONSULTANTS: 1. Yasmany Evangelista M.D. 2. Bar Beaver M.D. 3. Blaze Mcneil M.D. BRIEF HOSPITAL COURSE: The patient is a 76-year-old male, who has an unremarkable past medical history complained of dysphagia to solids starting about a week prior to admission. His dysphagia apparently became increasingly worse with pain radiating to the right side of the neck and reported that he has not been able to eat for the last 7 days and has not been able to drink much fluids. On admission to the ED, evaluation showed CT scan unremarkable and laboratories showed findings consistent with dehydration. He was started on IV fluids and was admitted to medical floor. He was seen by Dr. Mcneil. He complained of severe right periorbital headache and right auricular region with nighttime low-grade fevers prior to being admitted. MRI of the brain revealed age-related volume loss with evidence of prior bilateral cataract surgery. No acute abnormalities was noted. He had a CT of the neck with no contrast, which essentially was unremarkable study. No evidence of cervical mass or absence with mild degenerative changes of the cervical spine and posterior left lung dependent atelectasis. The patient had no evidence of acute infectious disease. No antibiotics were started. He underwent swallow evaluation. Bedside evaluation was done showed no overt signs and symptoms of aspiration and was recommended to upgrade diet to advance mechanical soft diet. Dr. Evangelista was consulted. The patient had elevated blood pressure and had an abnormal EKG revealing abnormally tall and peaked T-waves. Laboratories showed acute kidney injury and the potassium was elevated. The abnormal EKG with peaked T-waves was attributed to be secondary to hyperkalemia due to acute kidney injury. Benazepril was decreased and diuretics were added. He was continued on pravastatin and fenofibrate. Echocardiogram was done showed ejection fraction of 60% to 65% with no evidence of left ventricular hypertrophy and mild pulmonary hypertension. Diet was advanced. The patient was eventually discharged home with home health. FINAL DIAGNOSES: 1. Subacute dysphagia. 2. Dehydration. 3. Acute renal failure. 4. Hypertension. 5. Dyslipidemia. Dayanna Hays M.D. I have been assigned to dictate discharge summary on this account and I was not involved in the patient's management. Marium Reyes N.P. DR: ANGELITA JOB#: [id number] CC:
== END 2017-04-25 11:53 | disposition home health service (06) | DRG 392 ==
LOC: EMR 13:50 → EDBEDREQ 15:17 → 2E 15:49 → EDBEDREQ 16:05 → 4E 21:59
DX: R13.10 Dysphagia, unspecified (principal); N17.9 Acute kidney failure, unspecified; E87.5 Hyperkalemia; I27.2 Other secondary pulmonary hypertension; E86.0 Dehydration; I10 Essential (primary) hypertension; D64.9 Anemia, unspecified; R49.0 Dysphonia; E78.5 Hyperlipidemia, unspecified; M10.9 Gout, unspecified; R93.1 Abnormal findings on diagnostic imaging of heart and coronary circulation; Z85.46 Personal history of malignant neoplasm of prostate
CPT/HCPCS: 36415; 70450; 70490; 70551; 80053; 80061; 82962; 83036; 83540; 83550; 84443; 84484; 85025; 85610; 85651; 85730; 86140; 93005; 93306; J2405